=== PATIENT | female | born 1975 | race Hispanic/Latino ===

== ENCOUNTER 2017-06-20 12:24 | Emergency (ER) | payer SELFPAY ==
[2017-06-20] MEDS ORDERED: Sulfameth/Trimethoprim DS 800-160mg TAB ONE (13:15)
[2017-06-20] MEDS ORDERED: Lidocaine 1% PF 5 ML VIAL FS SCH (13:30)
[2017-06-20] MEDS ORDERED: cefTRIAXone\\ROCEPHIN 1 GM VIAL IM SCH (13:30)
[2017-06-20] MEDS ORDERED: Lidocaine 1% (PF) 30 ML VIAL ONE (13:35)
== END 2017-06-20 14:00 | disposition home or self-care (01) ==
LOC: ERS 12:24
DX: L03.115 Cellulitis of right lower limb (principal); E11.9 Type 2 diabetes mellitus without complications; Z79.4 Long term (current) use of insulin
CPT/HCPCS: 96372; J0696; J2001

== ENCOUNTER 2017-08-20 10:36 | Outpatient (CLI) | payer SELFPAY ==
--- NOTE | 2017-08-20 12:25 | MMO ---
BILATERAL SCREENING MAMMOGRAM: DATE: 08/20/17 HISTORY: 41-year-old female for baseline screening mammography. COMPARISON: None. FINDINGS: Bilateral MLO and CC views of the breasts show heterogeneously dense breast parenchyma, which may low er the sensitivity of mammography. There are benign-appearing calcifications in both breasts. There i s no evidence of suspicious mass, suspicious cluster of microcalcifications, or area of architectural distortion. Interpretation of this mammogram was performed with the assistance of computer-aided detection. IMPRESSION: BIRADS 2: Benign Finding(s) Annual screening mammography is recommended. POS: NIMESH
== END 2017-08-20 10:37 | disposition home or self-care (01) ==
LOC: SCSMAMMO 10:36
PROVIDERS: ATTEND Family Medicine
DX: Z12.31 Encounter for screening mammogram for malignant neoplasm of breast (principal)
CPT/HCPCS: 77067

== ENCOUNTER 2017-08-28 10:08 | Outpatient (CLI) | payer OTHER | END 2017-08-28 10:09 | disposition home or self-care (01) | LOC: BICULT 10:08 | PROVIDERS: ATTEND Family Medicine | DX: R94.5 Abnormal results of liver function studies (principal) | CPT/HCPCS: 76700 ==

== ENCOUNTER 2019-08-16 02:20 | Emergency (ER) | payer SELFPAY ==
[2019-08-16] MEDS ORDERED: Magnesium Citrate 300 ML BOT ONE (03:18)
== END 2019-08-16 03:24 | disposition home or self-care (01) ==
LOC: ERS 02:20
DX: K59.00 Constipation, unspecified (principal); E11.9 Type 2 diabetes mellitus without complications; Z79.4 Long term (current) use of insulin
CPT/HCPCS: 99283

== ENCOUNTER 2022-05-22 10:45 | Emergency (ER) | payer SELFPAY ==
[2022-05-22 11:37] LABS: #Eosinphils 0.2 thou/uL (0.0-0.7); #Lymphocytes 1.9 thou/uL (1.20-3.40); #Monocytes 0.5 thou/uL (0.11-0.59); #Neutrophils 8.5 thou/uL (1.40-6.50); %Basophils 0.3 % (0.0-1.0); %Eosinophils 1.6 % (0.0-10.0); %Lymphocytes 16.7 % (21.0-51.0); %Monocytes 4.3 % (0.0-10.0); %Neutrophils 77.1 % (42.0-75.0); Hemoglobin 13.3 g/dL (12.0-16.0); Mean Corpuscular HGB CONC 32.6 g/dL (32.0-36.0); Mean Corpuscular Hemoglobin 26.5 pg (27.0-31.0); Mean Corpuscular Volume 81.2 fl (78.0-98.0); Mean Platelet Volume 8.1 fL (7.4-10.4); Platelet Count 276 10x3/uL (130-400); RBC Distribution Width 13.2 % (11.5-14.5); Red Blood Cell (RBC) Count 5.01 mill/uL (4.20-5.40)
[2022-05-22 11:53] LABS: ALT (SGPT) 32 U/L (8-55); AST (SGOT) 20 U/L (5-34); Albumin 4.3 g/dL (3.5-5.0); Alkaline Phosphatase 61 U/L (40-110); Anion Gap 15 mmol/L (10-20); BUN (Urea Nitrogen) 18 mg/dL (7.0-18.7); Bilirubin, Total 0.4 mg/dL (0.2-1.2); Calc. Creatinine Clearance 0 mL/min (70-130); Calcium 9.5 mg/dL (7.8-10.44); Carbon Dioxide 23 mmol/L (22-29); Chloride 97 mmol/L (98-107); Estimated GFR 79; Globulin 3.6 g/dL (2.4-3.5); Lipase 67 U/L (8-78); Potassium 4.7 mmol/L (3.5-5.1); Protein, Total 7.9 g/dL (6.0-8.3); Sodium 130 mmol/L (136-145)
[2022-05-22 12:01] LABS: Glucose 416 mg/dL (70-105)
[2022-05-22 12:02] LABS: BHCG - Serum Negative (NEGATIVE); Pregs Control Background? CLEAR/WHITE (CLR/WHITE); Pregs Control Bar Appear? YES (CONTROL BAR)
[2022-05-22 12:31] LABS: Bacteria/HPF 4+ HPF (None Seen); Bilirubin Negative (Negative); Blood, Urine 3+ (Negative); Glucose, Urine (Dipstick) Greater than 1000 mg/dL (Negative); Ketone, Urine Negative (Negative); Leukocyte 500 Leu/uL (Negative); Nitrite 1+ (Negative); Protein, Urine (Dipstick) 30 mg/dL (Neg-Trace); RBC/HPF Greater than 50 HPF (0-3); Specific Gravity, Urine 1.032 (1.002-1.036); Squamous Epithelial 0-3 HPF (0-3); Urobilinogen Normal mg/dL (Less than 2); WBC/HPF Greater than 50 HPF (0-3)
[2022-05-22 12:32] LABS: Clarity Turbid (Clear); Pregnancy Test - Urine (BHCG) Negative (Negative); Pregu Control Background? CLEAR/WHITE (CLR/WHITE); Pregu Control Bar Appear? YES (CONTROL BAR); Specific Gravity 1.032 (1.002-1.036)
[2022-05-22] MEDS ORDERED: cefTRIAXone\\ROCEPHIN 1 GM VIAL ONE (14:10)
[2022-05-22] MEDS ORDERED: Iopamidol-370 76% 500 ML 1 ML ONE (15:33)
== END 2022-05-22 16:36 | disposition home or self-care (01) ==
LOC: ERS 10:45
DX: N39.0 Urinary tract infection, site not specified (principal); K59.00 Constipation, unspecified; E11.65 Type 2 diabetes mellitus with hyperglycemia; Z79.4 Long term (current) use of insulin
CPT/HCPCS: 36415; 74177; 80053; 81003; 81015; 81025; 83690; 84703; 85025; 87077; 87086; 87186; 94760; 96374; J0696; Q9967

== ENCOUNTER 2023-05-11 05:07 | Inpatient (IN) | payer SELFPAY ==
[2023-05-11] MEDS ORDERED: Ondansetron PF 4 MG/2 ML Vial ONE (05:27)
[2023-05-11] MEDS ORDERED: Sodium Chloride 0.9% 100 ML ONE (05:33)
[2023-05-11] MEDS ORDERED: Cefepime 2 GM VIAL ONE (05:33)
[2023-05-11 05:34] LABS: #Monocytes 0.2 thou/uL (0.11-0.59); %Basophils 0.2 % (0.0-1.0); %Eosinophils 0.3 % (0.0-10.0); %Lymphocytes 4.3 % (21.0-51.0); %Monocytes 2.3 % (0.0-10.0); %Neutrophils 92.4 % (42.0-75.0); Mean Corpuscular HGB CONC 34.2 g/dL (32.0-36.0); Mean Corpuscular Hemoglobin 27.1 pg (27.0-31.0); Mean Corpuscular Volume 79.2 fl (78.0-98.0); Mean Platelet Volume 10.6 fL (7.4-10.4); Platelet Count 198 10x3/uL (130-400); White Blood Cell (WBC) Count 9.7 10x3/uL (4.8-10.8)
[2023-05-11 05:42] LABS: Actual Bicarbonate (HCO3v) 19.9 mEq/L (22-28); Base Excess -4.3 mEq/L (-2.0 to +3.0); Calcium, Ionized (venous) 1.11 mmol/L (1.16-1.32); Chloride (VBG) 98 mmol/L (98-106); Hematocrit-VBG 35 % (36.0-47.0); Potassium (VBG) 4.11 mmol/L (3.70-5.30); Sodium 134 mmol/L (133-146)
[2023-05-11] MEDS ORDERED: Vancomycin (BATCH) 1.5 GM in Premix 1 BAG IVPB SCH (05:45)
[2023-05-11] MEDS ORDERED: Acetaminophen 500 MG TAB ONE (05:47)
[2023-05-11 06:05] LABS: Troponin I Less than 0.010 ng/mL (< 0.028)
[2023-05-11 06:19] LABS: ALT (SGPT) 54 U/L (8-55); AST (SGOT) 50 U/L (5-34); Albumin 3.9 g/dL (3.5-5.0); Alkaline Phosphatase 104 U/L (40-110); Anion Gap 22 mmol/L (10-20); BUN (Urea Nitrogen) 19 mg/dL (7.0-18.7); Bilirubin, Total 1.2 mg/dL (0.2-1.2); Calc. Creatinine Clearance 0 mL/min (70-130); Calcium 9.4 mg/dL (7.8-10.44); Carbon Dioxide 17 mmol/L (22-29); Chloride 99 mmol/L (98-107); Estimated GFR 71; Globulin 3.8 g/dL (2.4-3.5); Lipase 11 U/L (8-78); Magnesium 1.8 mg/dL (1.6-2.6); Potassium 4.3 mmol/L (3.5-5.1); Protein, Total 7.7 g/dL (6.0-8.3); Sodium 134 mmol/L (136-145)
[2023-05-11 06:24] LABS: Glucose 467 mg/dL (70-105)
[2023-05-11 07:54] LABS: Bilirubin Negative (Negative); Blood, Urine Trace (Negative); CAUTI Indications for Culture Fever or rigors; Clarity Clear (Clear); Glucose, Urine (Dipstick) Greater than 1000 mg/dL (Negative); Ketone, Urine 100 mg/dL (Negative); Leukocyte Negative Leu/uL (Negative); Nitrite 2+ (Negative); Protein, Urine (Dipstick) 50 mg/dL (Neg-Trace); RBC/HPF 0-3 HPF (0-3); Specific Gravity, Urine 1.028 (1.002-1.036); Urobilinogen Normal mg/dL (Less than 2); pH, Urine 5.5 (5.0-9.0)
[2023-05-11 08:09] LABS: Bacteria/HPF Rare-Few HPF (None Seen); Squamous Epithelial 0-3 HPF (0-3)
[2023-05-11 08:11] LABS: Urine Culture Reflex No No
[2023-05-11] MEDS ORDERED: Insulin Regular 300 UNITS/3 ML VIAL SC PRN (08:12)
[2023-05-11] MEDS ORDERED: Dextrose 50% Abboject 50 ML SYRINGE SLOW IVP PRN (08:12)
[2023-05-11] MEDS ORDERED: Glucagon 1 MG/ML KIT IM PRN (08:12)
[2023-05-11] MEDS ORDERED: Dextrose 5% in Water 1,000 ML IV PRN (08:12)
[2023-05-11] MEDS ORDERED: Ondansetron ODT 4 MG TAB PO PRN (08:14)
[2023-05-11] MEDS ORDERED: Calcium Carbonate 500 MG ChewTAB PO PRN (08:14)
[2023-05-11] MEDS ORDERED: Ondansetron PF 4 MG/2 ML Vial IVP PRN (08:14)
[2023-05-11] MEDS ORDERED: Sodium Chloride 0.9% 1,000 ML IV SCH (08:15)
[2023-05-11] MEDS ORDERED: Insulin Regular 300 UNITS/3 ML VIAL ONE (09:08)
[2023-05-11 09:43] LABS: Troponin I Less than 0.010 ng/mL (< 0.028)
[2023-05-11] MEDS ORDERED: Ibuprofen 200 MG TAB PO PRN (09:48)
[2023-05-11] MEDS ORDERED: Magnesium 2 GM/50 ML(in water) 2 GM in Premix 1 BAG IVPB SCH (10:00)
[2023-05-11 11:45] VITALS: BMI 34.9
[2023-05-11] MEDS: Sodium Chloride 0.9% 1,000 ML IV SCH ×2 (12:12→18:06)
[2023-05-11] MEDS: Pantoprazole 40 MG VIAL IVP SCH (12:13)
[2023-05-11] MEDS ORDERED: Insulin Glargine 30 UNITS/0.3 ML VIAL SC SCH ×3 (12:30→21:00)
[2023-05-11] MEDS ORDERED: Iopamidol-370 76% 500 ML MDV (1 ML CHARGE) ONE (13:32)
[2023-05-11] MEDS: cefTRIAXone\\ROCEPHIN 2 GM in Sodium Chloride 0.9% 100 ML IVPB SCH (16:28)
[2023-05-11] MEDS: Saccharomyces boulardii 250 MG CAP PO SCH (16:28)
[2023-05-11 17:13] LABS: Anion Gap 13 mmol/L (10-20); BUN (Urea Nitrogen) 17 mg/dL (7.0-18.7); Calc. Creatinine Clearance 123 mL/min (70-130); Calcium 7.6 mg/dL (7.8-10.44); Carbon Dioxide 18 mmol/L (22-29); Chloride 102 mmol/L (98-107); Estimated GFR 84; Glucose 464 mg/dL (70-105); Potassium 3.7 mmol/L (3.5-5.1); Sodium 129 mmol/L (136-145)
[2023-05-11] MEDS: Acetaminophen 325 MG TAB PO PRN (18:06)
[2023-05-12] MEDS: Sodium Chloride 0.9% 1,000 ML IV SCH ×5 (01:17→20:46)
[2023-05-12 06:27] LABS: #Monocytes 0.6 thou/uL (0.11-0.59); #Neutrophils 6.9 thou/uL (1.40-6.50); %Basophils 0.2 % (0.0-1.0); %Eosinophils 0.2 % (0.0-10.0); %Lymphocytes 8.3 % (21.0-51.0); %Monocytes 7.3 % (0.0-10.0); %Neutrophils 83.6 % (42.0-75.0); Mean Corpuscular HGB CONC 33.1 g/dL (32.0-36.0); Mean Corpuscular Hemoglobin 27.1 pg (27.0-31.0); Mean Corpuscular Volume 81.8 fl (78.0-98.0); Mean Platelet Volume 10.8 fL (7.4-10.4); Platelet Count 159 10x3/uL (130-400); RBC Distribution Width 14.5 % (11.5-14.5); Red Blood Cell (RBC) Count 3.47 mill/uL (4.20-5.40); White Blood Cell (WBC) Count 8.2 10x3/uL (4.8-10.8)
[2023-05-12 06:36] LABS: Hematocrit 28.4 % (36.0-47.0); Hemoglobin 9.4 g/dL (12.0-16.0)
[2023-05-12 06:37] LABS: Hemoglobin A1c 13.7 % (4.0-6.0)
[2023-05-12 06:56] LABS: ALT (SGPT) 47 U/L (8-55); AST (SGOT) 48 U/L (5-34); Alkaline Phosphatase 97 U/L (40-110); Anion Gap 13 mmol/L (10-20); BUN (Urea Nitrogen) 12 mg/dL (7.0-18.7); Bilirubin, Total 0.7 mg/dL (0.2-1.2); Calc. Creatinine Clearance 137 mL/min (70-130); Calcium 7.8 mg/dL (7.8-10.44); Carbon Dioxide 18 mmol/L (22-29); Chloride 107 mmol/L (98-107); Estimated GFR 95; Glucose 334 mg/dL (70-105); Magnesium 2.3 mg/dL (1.6-2.6); Potassium 3.7 mmol/L (3.5-5.1); Sodium 134 mmol/L (136-145)
[2023-05-12] MEDS: Insulin Regular 300 UNITS/3 ML VIAL SC PRN ×3 (08:39→18:05)
[2023-05-12] MEDS: Insulin Glargine 30 UNITS/0.3 ML VIAL SC SCH ×2 (08:39→20:46)
[2023-05-12] MEDS: Acetaminophen 325 MG TAB PO PRN ×2 (08:40→15:48)
[2023-05-12] MEDS ORDERED: FLU VACC QS2023-24(6MOS UP)/PF 60 MCG/0.5 ML SYRINGE IM ONE (09:00)
[2023-05-12] MEDS: Pantoprazole 40 MG VIAL IVP SCH (09:33)
[2023-05-12] MEDS: cefTRIAXone\\ROCEPHIN 2 GM in Sodium Chloride 0.9% 100 ML IVPB SCH (15:32)
[2023-05-12] MEDS: Saccharomyces boulardii 250 MG CAP PO SCH (15:32)
[2023-05-13] MEDS: Sodium Chloride 0.9% 1,000 ML IV SCH (05:48)
[2023-05-13] MEDS ORDERED: glipiZIDE 5 MG TAB PO SCH (08:12)
[2023-05-13] MEDS ORDERED: Ciprofloxacin 500 MG TAB PO SCH (08:15)
[2023-05-13] MEDS: Insulin Glargine 30 UNITS/0.3 ML VIAL SC SCH ×2 (08:32→20:48)
[2023-05-13] MEDS: Saccharomyces boulardii 250 MG CAP PO SCH (13:43)
[2023-05-13] MEDS: Ciprofloxacin 500 MG TAB PO SCH (20:44)
[2023-05-14] MEDS: Ciprofloxacin 500 MG TAB PO SCH (05:13)
[2023-05-14] MEDS ORDERED: glipiZIDE 5 MG TAB PO SCH (07:30)
[2023-05-14 11:33] VITALS: BP 116/72; TEMP 98.3
[2023-05-14] MEDS ORDERED: Insulin Glargine 30 UNITS/0.3 ML VIAL SC SCH (21:00)
== END 2023-05-14 12:02 | disposition home or self-care (01) | DRG 871 ==
LOC: ERS 05:07 → 2SE 10:49 → T4-A 05-12 21:12
PROVIDERS: ADMIT Internal Medicine; ATTEND Internal Medicine
DX: A41.51 Sepsis due to Escherichia coli [E. coli] (principal); E11.10 Type 2 diabetes mellitus with ketoacidosis without coma; N12 Tubulo-interstitial nephritis, not specified as acute or chronic; N10 Acute pyelonephritis; R65.20 Severe sepsis without septic shock; E86.0 Dehydration; B18.2 Chronic viral hepatitis C; E66.9 Obesity, unspecified; Z79.4 Long term (current) use of insulin; Z98.51 Tubal ligation status; Z68.34 Body mass index [BMI] 34.0-34.9, adult
CPT/HCPCS: 36415; 36416; 71045; 74177; 80053; 81001; 82010; 82805; 83036; 83605; 83690; 83735; 84484; 84702; 85025; 87040; 87077; 87086; 87149; 87186; 93005; 96361; 96365; 96366; 96367; 96375; C9113; J0692; J0696; J1650; J1815; J2405; J3370; J3475; J3490; J7050; Q9967